=== PATIENT | male | born 1990 | race Two or more races ===

== ENCOUNTER 2019-10-05 10:41 | Emergency (ER) | payer MEDICARE ==
[2019-10-05 10:59] VITALS: BP 126/63
--- NOTE | 2019-10-05 11:15 | ER Document Report ---
HPI - HPI Time Seen by Provider: 10/05/19 11:07 Pain Level: 3 Notes: 29-year-old male patient presenting to the emergency department chief complaint of bilateral wrist pain. Patient reports he just traveled to [place], was recently in the [facility] longterm where he was missed appropriately treated by the police. Patient states he would like x-rays done to make sure he has no injuries. - CONSTITUTIONAL Constitutional: DENIES: Fever, Chills Past Medical History - General Information source: Patient - Social History Smoking Status: Current Every Day Smoker Drug Abuse: Marijuana Family History: Reviewed & Not Pertinent Patient has suicidal ideation: No Patient has homicidal ideation: No Psychiatric Medical History: Reports: Hx Bipolar Disorder, Hx Schizophrenia Past Surgical History: Reports: Hx Orthopedic Surgery - bilateral 1st digit toe surgery Vertical Provider Document - CONSTITUTIONAL Notes: PHYSICAL EXAMINATION: GENERAL: Well-appearing, well-nourished and in no acute distress. HEAD: Atraumatic, normocephalic. EYES: Pupils equal round extraocular movements intact, conjunctiva are normal. ENT: Nares patent NECK: Normal range of motion LUNGS: No respiratory distress Musculoskeletal: Normal range of motion to bilateral wrist, no swelling, ecchymosis or obvious injury noted. Strong radial pulse bilaterally. Cap refill less than 3 seconds bilaterally. NEUROLOGICAL: Normal speech, normal gait. PSYCH: Normal mood, normal affect. SKIN: Warm, Dry, normal turgor, no rashes or lesions noted. - INFECTION CONTROL TRAVEL OUTSIDE OF THE [place] IN LAST 30 DAYS: No Course - Re-evaluation Re-evalutation: 10/05/19 13:22 Patient eloped from emergency department. - Vital Signs Vital signs: Temp Pulse Resp BP Pulse Ox 98.1 F 57 L 14 126/63 H 100 10/05/19 10:51 10/05/19 10:51 10/05/19 10:51 10/05/19 10:51 10/05/19 10:51 Discharge - Discharge Clinical Impression: Eloped from emergency department Condition: Good Disposition: HOME, SELF-CARE Referrals: LOCALMD,NO [NO LOCAL MD] - Follow up as needed
--- NOTE | 2019-10-05 11:57 | RADIOLOGY REPORT (SQ) ---
EXAM DESCRIPTION: WRIST BILATERAL 3 VIEWS COMPLETED DATE/TIME: 10/05/2019 11:48 am REASON FOR STUDY: wrist pain after being handcuffed COMPARISON: None. NUMBER OF VIEWS: Three views right wrist. Three views left wrist. TECHNIQUE: AP, lateral, and oblique radiographic images acquired of the right and left wrist. LIMITATIONS: None. FINDINGS: MINERALIZATION: Normal. BONES: No acute fracture or dislocation. No worrisome bone lesions. Normal alignment. SOFT TISSUES: No soft tissue swelling. No foreign body. OTHER: No other significant finding. IMPRESSION: NEGATIVE STUDY OF THE RIGHT AND LEFT WRISTS. NO RADIOGRAPHIC EVIDENCE OF ACUTE INJURY. TECHNICAL DOCUMENTATION: JOB ID: [id number] 2010 [employer]- All Rights Reserved Reading location - IP/workstation name: [email or web address]
== END 2019-10-05 12:57 | disposition home or self-care (01) ==
LOC: ER 10:41
DX: Z53.20 Procedure and treatment not carried out because of patient's decision for unspecified reasons (principal); M25.531 Pain in right wrist; M25.532 Pain in left wrist; F17.200 Nicotine dependence, unspecified, uncomplicated; F12.10 Cannabis abuse, uncomplicated
CPT/HCPCS: 99281

== ENCOUNTER 2020-02-05 15:39 | Emergency (ER) | payer MEDICARE ==
--- NOTE | 2020-02-05 16:34 | ER Document Report ---
ED Medical Screen (RME) - General Chief Complaint: Psych Problem Stated Complaint: PSYCH EVAL Time Seen by Provider: 02/05/20 16:33 Notes: This is a 30-year-old male with a longstanding history of schizophrenia has not taken his medicine in quite some time he is hearing voices wants to hurt some self and wants to hurt others brought here by his former partner. TRAVEL OUTSIDE OF THE [place] IN LAST 30 DAYS: No - Related Data Allergies/Adverse Reactions: No Known Allergies Allergy (Verified 02/05/20 16:30) Past Medical History Psychiatric Medical History: Reports: Hx Bipolar Disorder, Hx Schizophrenia Past Surgical History: Reports: Hx Orthopedic Surgery - bilateral 1st digit toe surgery Physical Exam - Vital signs Vitals: Temp Pulse Resp BP Pulse Ox 99.0 F 70 18 124/78 100 02/05/20 15:45 02/05/20 15:45 02/05/20 15:45 02/05/20 15:45 02/05/20 15:45 Course - Vital Signs Vital signs: Temp Pulse Resp BP Pulse Ox 99.0 F 70 18 124/78 100 02/05/20 15:45 02/05/20 15:45 02/05/20 15:45 02/05/20 15:45 02/05/20 15:45
[2020-02-05 17:12] LABS: ABSOLUTE BASOPHILS # (AUTO) 0.1 10^3/uL (0.0-0.2); ABSOLUTE LYMPHOCYTES (AUTO) 1.4 10^3/uL (0.5-4.7); ABSOLUTE MONOCYTES (AUTO) 0.4 10^3/uL (0.1-1.4); ABSOLUTE NEUT (AUTO) 2.6 10^3/uL (1.7-8.2); BASOPHILS % (AUTO) 1.2 % (0-2); EOSINOPHILS % (AUTO) 0.9 % (0-6); HEMATOCRIT 44.9 % (37.9-51.0); HEMOGLOBIN 15.9 g/dL (13.5-17.0); LYMPHOCYTES % (AUTO) 32.2 % (13-45); MEAN CORPUSCULAR HEMOGLOBIN 31.3 pg (27.0-33.4); MEAN CORPUSCULAR HGB CONC 35.3 g/dL (32.0-36.0); MEAN CORPUSCULAR VOLUME 89 fl (80-97); MONOCYTES % (AUTO) 8.3 % (3-13); PLATELET COUNT 211 10^3/uL (150-450); RED BLOOD COUNT 5.07 10^6/uL (4.35-5.55); RED CELL DISTRIBUTION WIDTH 12.7 % (11.5-14.0); SEGMENTED NEUTROPHILS % (AUTO) 57.4 % (42-78); TOTAL CELLS COUNTED % (AUTO) 100 %; WHITE BLOOD COUNT 4.5 10^3/uL (4.0-10.5)
[2020-02-05 17:14] LABS: APPEARANCE,URINE CLEAR; BILIRUBIN,URINE NEGATIVE (NEGATIVE); COLOR,URINE YELLOW; GLUCOSE, URINE NEGATIVE (NEGATIVE); KETONES,URINE NEGATIVE (NEGATIVE); LEUKOCYTE ESTERASE,URINE NEGATIVE (NEGATIVE); NITRITE,URINE NEGATIVE (NEGATIVE); PROTEIN,URINE NEGATIVE (NEGATIVE); URINE SPECIFIC GRAVITY 1.015; UROBILINOGEN,URINE NEGATIVE mg/dL (<2.0)
[2020-02-05 17:17] LABS: ALKALINE PHOSPHATASE 52 U/L (38-126); ANION GAP 7 (5-19); ASPARTATE AMINO TRANSFERASE 30 U/L (17-59); BILIRUBIN,TOTAL 1.3 mg/dL (0.2-1.3); BLOOD UREA NITROGEN 10 mg/dL (7-20); CALCIUM 9.9 mg/dL (8.4-10.2); CARBON DIOXIDE 29 mmol/L (22-30); CHLORIDE 103 mmol/L (98-107); GLUCOSE 94 mg/dL (75-110); POTASSIUM 4.2 mmol/L (3.6-5.0)
[2020-02-05 17:26] LABS: URINE AMPHETAMINES SCREEN NEGATIVE; URINE BARBITURATES SCREEN NEGATIVE; URINE BENZODIAZEPINES SCREEN NEGATIVE; URINE COCAINE SCREEN NEGATIVE; URINE MARIJUANA (THC) SCREEN UNCONFIRMED POSITIVE; URINE METHADONE SCREEN NEGATIVE; URINE PHENCYCLIDINE SCREEN NEGATIVE
[2020-02-05 17:39] LABS: FREE T4 (FREE THYROXINE) 1.32 ng/dL (0.78-2.19)
[2020-02-05 17:53] LABS: THYROID STIMULATING HORMONE 1.78 uIU/mL (0.47-4.68)
[2020-02-05] MEDS ORDERED: HYDROXYZINE HCL 10 MG TABLET PO SCH (21:45)
[2020-02-05] MEDS ORDERED: RISPERIDONE 1 MG TABLET PO SCH (22:00)
--- NOTE | 2020-02-06 00:27 | ER Document Report ---
Entered by MELBA ODEN SCRIBE 02/05/202018 Acting as scribe for:KISHOR GANNON IV, MD ED Psych Disorder / Suicide - General Chief Complaint: Psych Problem Stated Complaint: PSYCH EVAL Time Seen by Provider: 02/05/20 16:33 Mode of Arrival: Ambulatory Information source: Patient, Emergency Med Personnel Notes: This 30 year old male patient presents to the ED today with complaints of suicidal and homicidal ideation per ED nursing note. Patient denies psychiatric history or taking psychiatric medications; however, the patient's former partner reports a history of schizophrenia and bipolar disorder and that the patient has been off of his medications for over a year. According to ED nurse, the former partner reportedly told the patient he could no longer live with him and his family due to verbal threats of harm to his family. When asked about his reason for coming to the ED tonight, the patient states "no comment." TRAVEL OUTSIDE OF THE [place] IN LAST 30 DAYS: No - Related Data Allergies/Adverse Reactions: No Known Allergies Allergy (Verified 02/05/20 16:30) Past Medical History - General Information source: [facility] Records - Social History Smoking Status: Never Smoker Cigarette use (# per day): No Chew tobacco use (# tins/day): No Smoking Education Provided: No Frequency of alcohol use: None Drug Abuse: Marijuana Family History: Reviewed & Not Pertinent Patient has suicidal ideation: Yes Patient has homicidal ideation: Yes Psychiatric Medical History: Reports: Hx Bipolar Disorder, Hx Schizophrenia Past Surgical History: Reports: Hx Orthopedic Surgery - bilateral 1st digit toe surgery Review of Systems - Review of Systems Constitutional: No symptoms reported EENT: No symptoms reported Cardiovascular: No symptoms reported Respiratory: No symptoms reported Gastrointestinal: No symptoms reported Genitourinary: No symptoms reported Male Genitourinary: No symptoms reported Musculoskeletal: No symptoms reported Skin: No symptoms reported Hematologic/Lymphatic: No symptoms reported Neurological/Psychological: See HPI, Homicidal ideation, Suicidal ideation -: Yes All other systems reviewed and negative Physical Exam - Vital signs Vitals: Temp Pulse Resp BP Pulse Ox 99.0 F 70 18 124/78 100 02/05/20 15:45 02/05/20 15:45 02/05/20 15:45 02/05/20 15:45 02/05/20 15:45 Interpretation: Normal - General General appearance: Alert, Other In distress: None - HEENT Head: Normocephalic, Atraumatic Eyes: Normal Pupils: PERRL - Respiratory Respiratory status: No respiratory distress Chest status: Nontender Breath sounds: Normal Chest palpation: Normal - Cardiovascular Rhythm: Regular Heart sounds: Normal auscultation Murmur: No Friction rub: No Gallop: None auscultated - Abdominal Inspection: Normal Distension: No distension Bowel sounds: Normal Tenderness: Nontender - Abdomen soft Organomegaly: No organomegaly - Back Back: Normal, Nontender - Extremities General upper extremity: Normal inspection General lower extremity: Normal inspection. No: Edema - Neurological Neuro grossly intact: Yes Orientation: AAOx4 [place] Coma Scale Eye Opening: Spontaneous [place] Coma Scale Verbal: Oriented Anabelle Coma Scale Motor: Obeys Commands [place] Coma Scale Total: 15 - Psychological Associated symptoms: Other - Evasive with questioning, poor historian in terms of reporting the list of medications he was on. - Skin Skin Temperature: Warm Skin Moisture: Dry Skin Color: Normal Course - Vital Signs Vital signs: Temp Pulse Resp BP Pulse Ox 98.3 F 72 16 124/82 100 02/06/20 20:47 02/06/20 20:47 02/06/20 20:47 02/06/20 20:47 02/06/20 20:47 - Laboratory Result Diagrams: 02/05/20 16:45 02/05/20 16:45 Discharge - Discharge Clinical Impression: Bipolar 1 disorder with moderate jody, Schizo-affective psychosis Condition: Fair Disposition: PSYCH HOSP/UNIT I personally performed the services described in the documentation, reviewed and edited the documentation which was dictated to the scribe in my presence, and it accurately records my words and actions.
[2020-02-06] MEDS: HYDROXYZINE PAMOATE 50 MG CAPSULE PO SCH ×3 (09:56→18:41)
--- NOTE | 2020-02-06 14:40 | ER Document Report ---
Doctor's Note Notes: 02/06/20 14:00 PHYSICAL EXAMINATION: GENERAL: Well-appearing and in no acute distress. HEAD: Atraumatic, normocephalic. EYES: sclera anicteric, conjunctiva are normal. ENT: nares patent. Moist mucous membranes. NECK: Normal range of motion, supple without lymphadenopathy LUNGS: CTAB and equal. No wheezes rales or rhonchi. HEART: Regular rate and rhythm without murmurs ABDOMEN: Soft, nontender, normal bowel sounds, no guarding. EXTREMITIES: Normal range of motion, no pitting edema. No cyanosis. BACK: No CVA tenderness NEUROLOGICAL: Cranial nerves grossly intact. Normal speech. PSYCH: Patient with tangential speech, preoccupied with world issues and feeling overwhelmed with how he will solve the issues. SKIN: Warm, Dry, normal turgor, no rashes or lesions noted Patient appears medically clear for discharge or transfer pending mental health position 02/06/20 19:02 Patient has been accepted to [facility], patient is stable for transfer at this time.
--- NOTE | 2020-02-06 19:24 | EKG REPORT ---
SEVERITY:- ABNORMAL ECG - SINUS RHYTHM ST ELEVATION SUGGESTS PERICARDITIS : Confirmed by: Yvonne Eddy 06-Feb-2020 19:23:50
[2020-02-06 20:48] VITALS: BP 124/82
== END 2020-02-06 20:25 ==
LOC: ER 15:39
DX: F31.9 Bipolar disorder, unspecified (principal); F25.9 Schizoaffective disorder, unspecified; R45.850 Homicidal ideations; R45.851 Suicidal ideations; F12.10 Cannabis abuse, uncomplicated
CPT/HCPCS: 93005; 99285; 36415; 84439; 80307 ×2; 84443; 85025; 80053; 81001; 93010; A9270 ×3